=== PATIENT | male | born 1940 | race Two or more races ===

== ENCOUNTER 2022-12-27 18:50 | Inpatient (IN) | payer OTHER ==
[~2022-12-27] VITALS: Ht 177.8 cm; Wt 952.5 kg
--- NOTE | 2022-12-27 19:21 | NUR ---
SE RECIBE PTE ALERTA Y ORIENTADA X 3 ESFERAS EN AMBULANCIA EN COMPANIA DE PARAMEDICOS Y [facility] DEL DEPT DE [facility] ZOHREH RUIZ.PARAMEDICOS INDICAN FUERON ACTIVADOS POR ULISSES 408 Y AL LLEGAR AL LUGAR PTE SE ENCONTRABA EN EL SUELO DESDE EL SABADO CON ANASARCA,DIFICULTAD RESP,ASEO POBRE,DOLOR DE ESPALDA,SE RECIBE CON MASCARILL NON-REABREATHING,CANALIZADO EN BRAZO RT ANGIO 18 CON .9NSS,PARAMEDICOS ADMINISTRAN VASOTEC,SOLUMEDROL,LASIX,TORADOL.SE OBERVA CON USO DE MUSCULOS ACCESORIOS Y RETRAYENDO.SE UBICA EN AREA DE CPU Y SE NOTIFICA A DR KRAMER.
--- NOTE | 2022-12-27 20:31 | NUR ---
SE RECIBE PTE EL CUAL LLEGA EN AMBULANCIA, UBICADO EN CAMA NIVEL MAS BAJO, BRYSON DE IDENTIFICACION Y BARANDAS ELEVADAS POR PRECAUCION. SE CONECTA A MONITOR CARDIACO Y OXIMETRIA DE PULSO. PTE ALERTA Y ORIENTADO EN BRIGIDO ISSAC ESFERAS. SE OBSERVA CON DIFICULTAD RESPIRATORIA LA CUAL AUMENTA CON EL ESFUERZO Y UTILIZANDO MUSCULOS ACCESORIOS DEL AREA ABDOMINAL. PIEL CON MULTIPLES LESIONES, RESECA, SIN ASEO, CON ELVIRA EN AMBAS PIERNAS POR LESIONES EN LAS UNAS, EDEMA EN AMBAS PIERNAS. PTE CON OLOR FETIDO, ROPA CON ORINA Y SUCIA. SE REALIZAN PRUEBAS DE LABORATORIO Y SE CANALIZA X2 EN ANTEBRAZO Y MANO RT CON ANGIOS #18 AMBOS PATENTES Y LIBRES DE EDEMA O ERITEMA. SE REALIZA HIGIENE CON LA ASISTENCIA DE MS JEFFERY, SE PROVEE VESTIMENTA LIMPIA. EKG REALIZADO POR MS LATIA Y PRESENTADO A DR KRAMER. SE MANTIENE PTE BAJO OBSERVACION, CONECTADO A MONITOR CARDIACO Y OXIMETRIA DE PULSO.
--- NOTE | 2022-12-27 22:19 | NUR ---
CT DE HETAL YA REALIZADO. 9:50PM SE COLECTA TUBOS PILOTOS PARA REQUISAR 3 U DE PRBC FRACCIONADAS DOC ORDEN MEDICA Y SIGUIENDO MEDIDAS ASEPTICAS. 9:51PM SE NOTIFICA REQUISICION DE UNIDADES (3U PRBC FRACCIONADAS) A MS MEZA (PERSONAL DE [employer]). 10:07 SE ENTREGAN TUBOS PILOTOS JUNTO CON TUBO DE TIPO Y MARY AL LABORATORIO PARA SER RECOGIDOS. 10:20PM SE NOTIFICA A MR ROJAS, PERSONAL DE [employer]) PARA RECOGIDO DE TUBOS EN LABORATORIO. PTE FIRMA CONSENTIMINTO PARA SER TRANSFUNDIDO Y SE ADJUNTA EL MISMO A RECORD DE PTE. SE MANTIENE PTE BAJO OBSERVACION, CONECTADO A MONITOR CARDIACO Y OXIMETRIA DE PULSO.
--- NOTE | 2022-12-27 23:10 | NUR ---
10:30PM B/P MANUAL 70/40, SE NOTIFICA A DR SALDANA QUIEN ORDENA EL [place], SE ADMINISTRA EL MISMO (LEVOPHED 4MG/250ML @5ML/HR) DOC ORDEN MEDICA. 10:50PM MR HERNANDEZ INTENTA COLOCAR BONNER SIN EXITO, PTE INDICA QUE NO QUIERE SE VUELVA A INTENTAR POR LO QUE SE NOTIFICA A DR SALDANA. SE MANTIENE PTE BAJO OBSERVACION.
--- NOTE | 2022-12-27 23:58 | NUR ---
PATIENT REFUSES TO GET BLOOD DRAWN AND THREATENS MEDICAL PERSONEL WITH VIOLENCE. AN ATTEMPT TO CONVICE PATIENT OF COOPERATING WILL BE MADE IN 2 MORE HOURS.
[2022-12-28] MEDS ORDERED: LEVOTHYROXINE50 MCG (15:25)
[2022-12-28] MEDS ORDERED: CARVEDILOL25 M1 (15:25)
[2022-12-28] MEDS ORDERED: GINKGO BILOBA40 MG (15:26)
[2022-12-28] MEDS ORDERED: LOSARTAN POTASS50 MG (15:26)
[2022-12-28] MEDS ORDERED: SPIRONOLACTONE25 MG (15:26)
[2022-12-28] MEDS ORDERED: PRADAXA150 MG (15:26)
[2022-12-28] MEDS ORDERED: TADALAFIL20 MG (15:26)
== END 2023-01-13 15:40 | disposition home or self-care (01) | DRG 280 ==
LOC: ER 18:50 → ICU-2 23:27 → ICU 12-28 17:42 → SURH 12-31 20:05
PROVIDERS: ADMIT Internal Medicine; ATTEND Internal Medicine
PROC: 4A12X4Z Monitoring of Cardiac Electrical Activity, External Approach (ICD-10-PCS; 2022-12-27)
PROC: B020ZZZ Computerized Tomography (CT Scan) of Brain (ICD-10-PCS; 2022-12-27)
PROC: B24BYZZ Ultrasonography of Heart with Aorta using Other Contrast (ICD-10-PCS; 2022-12-27)
PROC: 30233N1 Transfusion of Nonautologous Red Blood Cells into Peripheral Vein, Percutaneous Approach (ICD-10-PCS; principal; 2022-12-28)
PROC: 3E0F7SF Introduction of Other Gas into Respiratory Tract, Via Natural or Artificial Opening (ICD-10-PCS; 2022-12-28)
DX: I13.0 Hypertensive heart and chronic kidney disease with heart failure and stage 1 through stage 4 chronic kidney disease, or unspecified chronic kidney disease (principal); I21.A1 Myocardial infarction type 2; I50.33 Acute on chronic diastolic (congestive) heart failure; R57.1 Hypovolemic shock; I48.20 Chronic atrial fibrillation, unspecified; N17.9 Acute kidney failure, unspecified; K92.2 Gastrointestinal hemorrhage, unspecified; F03.93 Unspecified dementia, unspecified severity, with mood disturbance; I24.9 Acute ischemic heart disease, unspecified; I50.82 Biventricular heart failure; N18.9 Chronic kidney disease, unspecified; I27.29 Other secondary pulmonary hypertension; I73.9 Peripheral vascular disease, unspecified; I95.89 Other hypotension; D63.8 Anemia in other chronic diseases classified elsewhere; D50.0 Iron deficiency anemia secondary to blood loss (chronic); D53.0 Protein deficiency anemia; F10.20 Alcohol dependence, uncomplicated; Z75.2 Other waiting period for investigation and treatment; Z79.01 Long term (current) use of anticoagulants; Z95.0 Presence of cardiac pacemaker